=== PATIENT | male | born 1950 | race Caucasian/White ===

== ENCOUNTER 2019-10-04 10:52 | Emergency (ER) | payer MEDICARE, OTHER ==
[~2019-10-04] VITALS: Ht 182.9 cm; Wt 120.2 kg
[2019-10-04] MEDS ORDERED: ACETAMINOPHEN ES 500 MG TABLET PO ONE (11:30)
[2019-10-04] MEDS ORDERED: ACETAMINOPHEN ES 500 MG TABLET ONE (11:33)
--- NOTE | 2019-10-04 12:25 | NUR ---
Pt is agitated, angry and extremely rude to the ER physician and nursng staff because his xray/CT results are not available yet. I explained to the pt that I will make a follow up call to get an ETA but pt stated he can no longer wait for the results and wants to leave.
--- NOTE | 2019-10-04 12:35 | NUR ---
Patient does not wish to proceed with medical care recommended by Dr. Rodriguez. Patient given information related to possible complications, up to and including , which could occur as a result of leaving the hospital at this time. Patient verbalizes understanding of risks involved due to leaving against medical advice. Patient has signed AMA form.
== END 2019-10-04 12:38 | disposition left against medical advice (07) ==
LOC: ER 10:52
DX: R51 Headache (principal); M54.2 Cervicalgia; M54.5 Low back pain; V49.9XXA Car occupant (driver) (passenger) injured in unspecified traffic accident, initial encounter; Y93.89 Activity, other specified; Y92.89 Other specified places as the place of occurrence of the external cause; Y99.8 Other external cause status
CPT/HCPCS: 70450; 72100; 72125; A4663; A9150